=== PATIENT | female | born 1990 | race Caucasian/White ===

== ENCOUNTER 2018-12-27 20:54 | Emergency (ER) | payer OTHER ==
--- NOTE | 2018-12-27 21:25 | PDOC ---
Rapid Medical Evaluation Time Seen by Provider: 12/27/18 21:24 Medical Evaluation: Allergies Allergy/AdvReac Type Severity Reaction Status Date / Time No Known Allergies Allergy Verified 08/23/16 18:17 12/27/18 21:24 12/27/18 21:01 I performed a brief in-person evaluation of this patient. Chief complaint:Burned left (non-dominant) hand on curling iron today Pertinent physical exam findings: White blistering to palmar aspect of 4 fingers of left hand, no circumferential ace I have ordered the following: None Patient to proceed to the ED for further evaluation Discharge Disposition - Diagnosis Burn of hand Qualifiers: Encounter type: initial encounter Burn of hand location: multiple fingers excluding thumb Laterality: left Burn degree: partial thickness (2nd degree) Qualified Code(s): T23.232A - Burn of second degree of multiple left fingers ( nail), not including thumb, initial encounter - Referrals - Patient Instructions - Post Discharge Activity
[2018-12-27 21:37] VITALS: BP 139/83; PULSE 81; TEMP 98.9; BMI 33.0
[2018-12-27] MEDS ORDERED: BACITRACIN 15 GM TUBE TOPICAL OINTMENT TP ONE (22:06)
[2018-12-27] MEDS ORDERED: DIPHTH,PERTUSS(ACELL),TET 0.5 ML DISP.SYRIN IM ONE ×2 (22:06→22:09)
--- NOTE | 2018-12-27 22:06 | PDOC ---
History of Present Illness - General Chief Complaint: Burn Stated Complaint: BURNHAND Time Seen by Provider: 12/27/18 21:24 History Source: Patient Exam Limitations: No Limitations - History of Present Illness Initial Comments: 12/27/18 22:01 HISTORY OF PRESENT ILLNESS: This a 28-year-old right hand dominant female who denies medical history of presents emergency Department with thermal burn to her left fingers after grabbing onto a hot curling iron. Patient states she was cleaning her curling iron and forgot that she had plugged it in when she grabbed onto the hot and. Patient mainly liquid the curling iron rinse her hand with ice water. She then grabbed onto cold packs to help ease the burning. Patient presented to the emergency department for evaluation. Patient is unsure of her last tetanus immunization. No recent travel or sick contacts. PAST MEDICAL HISTORY: Denies past medical history SURGICAL HISTORY: Denies ALLERGIES: No known drug allergies REVIEW OF SYSTEMS General/Constitutional: Denies fever or chills. Denies weakness, weight change. HEENT: Denies change in vision. Denies ear pain or discharge. Denies sore throat. Cardiovascular: Denies chest pain or shortness of breath. Respiratory: Denies cough, wheezing, or hemoptysis. Gastrointestinal: Denies nausea, vomiting, diarrhea or constipation. Denies rectal bleeding. Genitourinary: Denies dysuria, frequency, or change in urination. Musculoskeletal: Denies joint or muscle swelling or pain. Denies neck or back pain. Skin and breasts: See HPI Neurologic: Denies headache, vertigo, loss of consciousness, or loss of sensation. Psychiatric: Denies depression or anxiety. Endocrine: Denies increased thirst. Denies abnormal weight change. Hematologic/Lymphatic: Denies anemia, easy bleeding, or history of blood clots. Allergic/Immunologic: Denies hives or skin allergy. Denies latex allergy. PHYSICAL EXAM General Appearance: Well-appearing, appropriately dressed. No apparent distress , no intoxication. HEENT: EOMI, PERRLA, normal ENT inspection, normal voice, TMs normal, pharynx normal. No conjunctival pallor. No photophobia, scleral icterus. Neck: Supple. Trachea midline. No tenderness, rigidity, carotid bruit, stridor , lymphadenopathy, or thyromegaly. Respiratory/Chest: Lungs CTAB. No shortness of breath, chest tenderness, respiratory distress, accessory muscle use. No crackles, rales, rhonchi, stridor , wheezing, dullness Cardiovascular: RRR. S1, S2. No JVD, murmur, bradycardia, tachycardia. Vascular Pulses: Dorsalis-Pedis (R): 2+, Dorsalis-Pedis (L): 2+ Gastrointestinal/Abdominal: Normal bowel sounds. Abdomen soft, non-distended. No tenderness or rebound tenderness. No organomegaly, pulsatile mass, guarding, hernia, hepatomegaly, splenomegaly. Lymphatic: No adenopathy, tenderness. Musculoskeletal/Extremities: Normal inspection. FROM of all extremities, normal capillary refill. Pelvis Stable. No CVA tenderness. No tenderness to extremities, pedal edema, swelling, erythema or deformity. Integumentary: Second-degree thermal ace present to the palmar surface of the second third fourth and fifth phalanges of the left hand. Skin is blanchable to all burn sites. Blisters present upon arrival. Full range of motion of all phalanges. Neurovascular intact. Neurologic: wire welder II-XII intact. Fully oriented, alert. Appropriate mood/affect. Motor strength 5/5. No appreciable EOM palsy, facial droop or sensory deficit. Past History - Past Medical History Allergies/Adverse Reactions: Allergies Allergy/AdvReac Type Severity Reaction Status Date / Time No Known Allergies Allergy Verified 08/23/16 18:17 Home Medications: Ambulatory Orders NK [No Known Home Medication] 06/23/14 Anemia: No Asthma: No Cancer: No Cardiac Disorders: No COPD: No CHF: No - Surgical History Appendectomy: No Cardiac Surgery: No Cholecystectomy: No - Immunization History Td Vaccination: Yes - Suicide/Smoking/Psychosocial Hx Smoking Status: No Smoking History: Never smoked Have you smoked in the past 12 months: No Number of Cigarettes Smoked Daily: 0 Information on smoking cessation initiated: No Hx Alcohol Use: No Drug/Substance Use Hx: No Substance Use Type: None *Physical Exam - Vital Signs Last Vital Signs Temp Pulse Resp BP Pulse Ox 98.9 F 81 20 139/83 99 12/27/18 21:26 12/27/18 21:26 12/27/18 21:26 12/27/18 21:26 12/27/18 21:26 Moderate Sedation - Procedure Monitoring Vital Signs: Procedure Monitoring Vital Signs Temperature 98.9 F 12/27/18 21:26 Pulse Rate 81 12/27/18 21:26 Respiratory Rate 20 12/27/18 21:26 Blood Pressure 139/83 12/27/18 21:26 O2 Sat by Pulse Oximetry (%) 99 12/27/18 21:26 Medical Decision Making - Medical Decision Making 12/27/18 22:04 A/P: 28-year-old female second-degree thermal ace to the palmar surface of second third fourth and fifth digits of the left hand TBSA less than 1% Skin is blanchable around ace Blisters present Neurovascular intact Full range of motion against resistance. Boostrix Bacitracin Dry sterile dressing Discharge home with follow-up in burn center *DC/Admit/Observation/Transfer Diagnosis at time of Disposition: Burn of hand Qualifiers: Encounter type: initial encounter Burn of hand location: multiple fingers excluding thumb Laterality: left Burn degree: partial thickness (2nd degree) Qualified Code(s): T23.232A - Burn of second degree of multiple left fingers ( nail), not including thumb, initial encounter - Discharge Dispostion Disposition: HOME Condition at time of disposition: Stable Decision to Admit order: No - Referrals Referrals: Kate Billy MD [Primary Care Provider] - - Patient Instructions Printed Discharge Instructions: How to Take Care of a Burn Additional Instructions: Call the burn center of your choice for follow-up in their clinic. Call first thing Sunday morning to schedule an appointment and to find out when the clinic hours are open [facility] burn clinic [phone] [facility] [phone] Apply antibiotic ointment to ace area and cover with non-adhesive dressings twice a day until you follow up in the burn clinic Return to emergency department for worsening pain, discharge or drainage from the hand, inability to move hand, discoloration, or any other concerns. - Post Discharge Activity Forms/Work/School Notes: Back to Work
[2018-12-27] MEDS ORDERED: BACITRACIN 15 GM TUBE TOPICAL OINTMENT ONE (22:09)
== END 2018-12-27 22:29 | disposition home or self-care (01) ==
LOC: JERFT 20:54 → JER 20:54 → JERFT 22:29
PROC: 3E0234Z Introduction of Serum, Toxoid and Vaccine into Muscle, Percutaneous Approach (ICD-10-PCS; principal; 2018-12-27)
PROC: 2W2FX4Z Dressing of Left Hand using Bandage (ICD-10-PCS; 2018-12-27)
DX: T23.232A Burn of second degree of multiple left fingers (nail), not including thumb, initial encounter (principal); X19.XXXA Contact with other heat and hot substances, initial encounter; Y93.89 Activity, other specified; Y92.038 Other place in apartment as the place of occurrence of the external cause; Y99.8 Other external cause status
CPT/HCPCS: 16020; 90471; 90715; 99281-25